=== PATIENT | female | born 2000 | race African-American/Black ===

== ENCOUNTER 2022-01-14 06:35 | Emergency (ER) | payer SELFPAY ==
[~2022-01-14] VITALS: Ht 175.3 cm; Wt 82.0 kg
[2022-01-14 10:07] VITALS: BP 105/78
== END 2022-01-14 10:08 | disposition home or self-care (01) ==
LOC: ER 06:35
DX: R42 Dizziness and giddiness (principal); R53.1 Weakness
CPT/HCPCS: 99283

== ENCOUNTER 2023-07-19 10:56 | Emergency (ER) | payer MEDICAID, OTHER ==
[2023-07-19 11:00] VITALS: BP 118/69; PULSE 68; RESP 17; TEMP 98.1
[2023-07-19] MEDS: TETANUS, DIPHTHERIA, PERTUSSIS VAC/PF 0.5ML (>10YR OLD) IM ONE (11:35)
[2023-07-19] MEDS: AMOXICILLIN/POTASSIUM CLAVULANATE 875/125MG TAB PO ONE (11:35)
[2023-07-19] MEDS ORDERED: AMOX1TAB16 MT (11:46)
== END 2023-07-19 11:55 | disposition home or self-care (01) ==
LOC: ER 10:56
DX: S51.832A Puncture wound without foreign body of left forearm, initial encounter (principal); W54.0XXA Bitten by dog, initial encounter; Y93.89 Activity, other specified; Y92.89 Other specified places as the place of occurrence of the external cause; Y99.8 Other external cause status
CPT/HCPCS: 81025; 90471; 90715; 99283